=== PATIENT | male | born 1990 | race Caucasian/White ===

== ENCOUNTER 2016-11-25 03:41 | Inpatient (IN) | payer OTHER ==
[~2016-11-25] VITALS: Ht 170.2 cm; Wt 68.3 kg
[~2016-11-25 03:41] MED LIST: ALPRAZOLAM1 MG PO; NEXIUM 40MG40 MG PO; XANAX0.5 MG PO
--- NOTE | 2016-11-25 03:47 | ED PSYCHIATRIC COMPLAINT ---
See Addendum History of Present Illness General Chief Complaint: Psychiatric Related Complaint Stated Complaint: [place] [employer] PAP[employer] +SI Source: patient Exam Limitations: no limitations Vital Signs & Intake/Output Vital Signs & Intake/Output Vital Signs Date Time Temp Pulse Resp B/P B/P Pulse O2 O2 Flow FiO2 Mean Ox Delivery Rate 11/25 0353 Room Air 11/25 0347 97.3 116 18 121/74 97 Room Air Allergies Coded Allergies: NO KNOWN ALLERGIES (03/26/15) Reconcile Medications Alprazolam (Xanax) 0.5 MG TAB 1.5 MG PO DAILY INSOMNIA (Reported) Lamotrigine 100 MG TABLET 1 TAB PO DAILY MOOD (Reported) Triage Nurses Notes Reviewed? yes Onset: Gradual Duration: week(s):, waxing and waning Timing: recent history Severity: moderate Associated Symptoms: anxiety, suicidal ideation HPI: 26-year-old gentleman presents with suicidality. He states that he was in detox for heroin and Xanax in [place]. He says, "I told people that I wanted to kill myself then.... But I don't really want to do that now." He also states that he told an ex-girlfriend, "I will see you until the day I ." This was interpreted as being a suicidal statement. She called 911. The police brought him to the emergency department and papered him for further evaluation. He denies drug use, alcohol, suicidality, homicidality, or hallucinations. He is otherwise well. Past History Medical History Any Pertinent Medical History? see below for history Neurological: DENIES EENT: DENIES Cardiovascular: DENIES Respiratory: DENIES Gastrointestinal: DENIES Hepatic: DENIES Renal: DENIES Musculoskeletal: DENIES Psychiatric: anxiety Endocrine: DENIES Blood Disorders: DENIES Cancer(s): DENIES Surgical History Surgical History: non-contributory Psychosocial History What is your primary language Urdu Family History Hx Contributory? No Review of Systems Review of Systems Constitutional: Reports: no symptoms. EENTM: Reports: no symptoms. Respiratory: Reports: no symptoms. Cardiovascular: Reports: no symptoms. GI: Reports: no symptoms. Genitourinary: Reports: no symptoms. Musculoskeletal: Reports: no symptoms. Skin: Reports: no symptoms. Neurological/Psychological: Reports: no symptoms. Hematologic/Endocrine: Reports: no symptoms. Immunologic/Allergic: Reports: no symptoms. All Other Systems: Reviewed and Negative Physical Exam Physical Exam General Appearance: well developed/nourished, mild distress Head: atraumatic Eyes: Bilateral: PERRL, EOMI. Ears, Nose, Throat: normal pharynx, normal ENT inspection, hearing grossly normal Neck: normal inspection, supple Respiratory: normal breath sounds Cardiovascular: regular rate/rhythm Gastrointestinal: soft, non-tender Extremities: normal range of motion Neurological/Psychiatric: awake, anxious, flat, oriented x 3 Appearance/Memory/Insight: appropriate insight Behavoir/Eye Contact/Speech: cooperative, normal speech, good eye contact Thoughts/Hallucinations: no apparent hallucination Skin: intact, normal color, warm/dry SAD PERSONS SAD PERSONS Response Value Male Sex? yes 1 Depression/Hopelessness? yes 2 Excessive Ethanol/Drug Use? yes 1 Social Support? has no support 1 Total 5 SAD PERSONS Done? yes Progress Differential Diagnosis: DEPRESSION VERSUS SUICIDALITY VERSUS DRUG ABUSE Plan of Care: Orders Procedure Date/time Status Regular Diet 11/25 B Active Continuous Observation Monitor 11/26 347 Active URINE DRUG SCREEN FOR ER ONLY 11/26 347 Complete ETHANOL 11/26 347 Complete COMPREHENSIVE METABOLIC PANEL 11/26 347 Complete CBC WITHOUT DIFFERENTIAL 11/26 347 Complete ED CRISIS PSYCH CONSULT 11/26 347 Active Laboratory Tests 11/25/16 0403: Anion Gap 11, Estimated GFR > 60, BUN/Creatinine Ratio 13.3, Glucose 133 H, Calcium 8.6, Total Bilirubin 0.5, AST 19, ALT 40, Alkaline Phosphatase 80, Total Protein 6.0 L, Albumin 3.4 L, Globulin 2.6, Albumin/Globulin Ratio 1.3, CBC w Diff NO MAN DIFF REQ, RBC 4.35 L, MCV 86.9, MCH 29.9, RDW 13.9, MPV 7.1 L, Gran % 64.5, Lymphocytes % 21.5, Monocytes % 8.0, Eosinophils % 5.7 H, Basophils % 0.3, Absolute Granulocytes 9.9 H, Absolute Lymphocytes 3.3, Absolute Monocytes 1.2 H, Absolute Eosinophils 0.9, Absolute Basophils 0.1, PUBS MCHC 34.4, Serum Alcohol < 10.0 11/25/16 0355: Urine Opiates Screen > 4000.00 H, Methadone Screen > 735 H, Barbiturate Screen < 60, Ur Phencyclidine Scrn < 6.00, Amphetamines Screen 208, U Benzodiazepines Scrn > 800 H, Urine Cocaine Screen < 50, Urine Cannabis Screen < 5.00 Hand-Off Endorsed To: RUPAL BURGOS,ROZINA Estevez Endorsed Time: 0700 Pending: consult, labs Departure Departure Disposition: HOME OR SELF CARE Condition: Stable Clinical Impression Primary Impression: Adjustment disorder Secondary Impressions: Narcotic abuse Referrals: MABLE CAGLE (PCP/Family) Departure Forms: Customer Survey General Discharge Information
--- NOTE | 2016-11-25 03:54 | NUR ---
PT BIBA ON A PEER FROM [place] [employer] THAT WAS FAXED TO [facility]. PER PEER, PT WROTE IN AN EMAIL TO EX-GIRLFRIEND "THE NEXT TIME YOU HEAR FROM ME WILL BE THE DAY THAT I ." PT ARRIVES CALM AND COOPERATIVE, STATES HE SENT THE EMAIL IN THE CONTEXT THAT HE WAS NEVER GOING TO TALK TO HER AGAIN. PT DENIES SI/HI. DENIES ALCOHOL OR DRUG USE. PT REPORTS HE WAS IN [place] UNTIL OCTOBER IN A REHAB FACILITY FOR DETOX FROM IV HEROIN. PT WANDED BY SECURITY. MD YANEZ AT BEDSIDE
--- NOTE | 2016-11-25 04:04 | NUR ---
LABS SENT (1SST,1LAV)
[2016-11-25] MEDS ORDERED: LAMOTRIGINE100 M2 PO (04:06)
[2016-11-25 04:12] LABS: ABSOLUTE BASOPHIL COUNT 0.1 /CUMM (0.0-0.2); ABSOLUTE EOSINOPHIL COUNT 0.9 /CUMM (0.0-0.7); ABSOLUTE GRANULOCYTE CT 9.9 /CUMM (1.4-6.5); ABSOLUTE LYMPH COUNT 3.3 /CUMM (1.2-3.4); ABSOLUTE MONOCYTE COUNT 1.2 /CUMM (0.10-0.60); BASOPHIL % 0.3 % (0.0-2.0); EOSINOPHIL % 5.7 % (0-5); GRANULOCYTE % 64.5 % (42.2-75.2); HEMATOCRIT 37.8 % (42-52); MEAN CORPUSCULAR HGB 29.9 PG (27.0-31.0); MEAN CORPUSCULAR HGB CONC 34.4 G/DL (33.0-37.0); MEAN CORPUSCULAR VOLUME 86.9 FL (80.0-94.0); MEAN PLATELET VOLUME 7.1 FL (7.4-10.4); PLATELET COUNT 411 /CUMM (130-400); RBC DISTRIBUTION WIDTH 13.9 % (11.5-14.5); RED BLOOD CELL CT 4.35 /CUMM (4.70-6.10); WHITE BLOOD CELL COUNT 15.4 /CUMM (4.8-10.8)
--- NOTE | 2016-11-25 06:28 | NUR ---
PT AWAKE, ALERT AND ORIENTED. CALM AND COOPERATIVE. DENIES NEEDS AT THIS TIME.
--- NOTE | 2016-11-25 07:32 | NUR ---
PT SLEEPING, RESPIRATIONS EVEN AND UNLABORED.
--- NOTE | 2016-11-25 08:37 | ED PSYCH CRISIS CONSULTATION ---
See Addendum Crisis Consult Basic Assessment Date of Consult: 11/25/16 Responsible Person/Accompanied By: self Insurance Authorization: Insurance #1: Insurance name: OUT OF STATE [employer] Phone number: Policy number: [id number] Group number: [id number] Authorization number: ED Provider: Patient's ED Provider: RENATA BURGOS,RIKY Mccarthy Primary Care Physician: Patient's PCP: MABLE CAGLE PCP's Current Psychiatrist: Pee Jain APRN Chief Complaint: Psychiatric Related Complaint Patient's Quote: "I'm not suicidal, I just said it because we were arguing." Present Illness: Pt is a 26yo male who was brought to the ED on a PEER following an argument with his ex-girlfriend. Per the PEER, Pt sent his ex-girlfriend an email stating "The next time you hear from me will be the day that I " He also told her that he left inpt Rehab in [place] early so he could go kill himself. He left in october against medical advise. Upon crisis eval pt was calm co-operative and engaging. Pt admits that he did leave substance abuse rehab early because he felt he got everything out of it and did not think he needed to stay anymore. He admits that when he left the rehab that he was planning to kill himself by overdosing, but did not because he did not want to hurt his Mom. Pt denies active SI and stated he expressed those things to his ex-girlfriend out of anger. He explains that when he said "the next time you hear from me will be the day that I " was his way of expressing that he was no longer going to speak to her. Pt admits that he did make a suicide attempt by OD 3 years ago and was psychiatrically hospitalized at [facility] and was diagnosed with Bipolar II. Pt denies any of the hx of attempts on inpt psych admits. Pt reports that he was in out pt tx with Dr. Stephan aYnez of [place] for 4 years and 6 months ago changed to Harpal Munoz APRN of [facility] and is prescribed Lamictal 200mg and xanax 2mg. Pt denies abusing his xanax. Pt is also in out pt therapy with Jose Cheng LCSW, . Pt admits that he has not seen either once since his return from Rehab. Pt denies any hx of out pt substance abuse tx, but did have his first inpt substance abuse tx in October [facility] in [place]. Pt identified that he has struggled with heroin addiction for 3 years and was using up to 15 bags daily snorting and injecting. Pt reports that after he left rehab he immediately relapsed, but says he uses less about 5 bags 1 time a week. Pt admits that he also took methadone off the streets 3 days ago trying to detox himself. Pt denies any current sx of depression and says he sleep and appetite are good. Pt expresses his eagerness to discharge so that eh can return to work. 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 This clinician spoke to Pt's Mother Alice Garcia with whom pt lives who explained that the last time pt tried to kill himself it was over an ex-girlfriend and she is concerned for him and thinks that he needs to be hospitalized. Crisis spoke to pt's therapist Kuldeep Cheng LCSW who explained that he has not seen pt for quite some time, but is always willing to be a support. He reports that pt quite frequently makes suicidal statement inj relation to issues with girlfriends. He does understand the concerns and supports inpt psych tx for pt. He oofered to come in and be collaborate [id number] pt's tx. This clinician also spoke with Pt's Prescriber Harpal Jain APRN who explains that he has only seen pt 2xs and does not know him well, but given the circumstances of the situation he recommends inpt psych Hospitalization. He informed that he is going to be leaving [facility], and will be working at [facility] in [facility], but is willing to continue to work with pt ion his new practice. Case reviewed with Dr. Liriano of Psychiatry and pt needs inpt psych tx. Pt is refusing so he is being placed on PEC. Pt was instructed that that he may file for a probable cause hearing as he does not want inpt tx. Patient's Address: [address] [place] [address] Other Phone Number: Who Do You Live With? Mother Family/Informants Interviewed: Mom and Out pt providers Allergies - Coded Allergies: NO KNOWN ALLERGIES (03/26/15) Current Medications - Scheduled Medications Alprazolam (Xanax) 0.5 MG TAB 1.5 MG PO DAILY INSOMNIA (Reported) Entered as Reported by ANGELLA PELAYO on 03/26/15912 Last Taken: 11/24/16 Lamotrigine 100 MG TABLET 1 TAB PO DAILY MOOD #30 (Reported) Entered as Reported by MISTY SHEPHERD on 11/25/16 0406 Laboratory Results: Laboratory Tests 11/25/16 0826: Sodium Cancelled, Potassium Cancelled, Chloride Cancelled, Carbon Dioxide Cancelled, Anion Gap Cancelled, BUN Cancelled, Creatinine Cancelled, BUN/ Creatinine Ratio Cancelled, Glucose Cancelled, Calcium Cancelled 11/25/16 0403: Anion Gap 11, Estimated GFR > 60, BUN/Creatinine Ratio 13.3, Glucose 133 H, Calcium 8.6, Total Bilirubin 0.5, AST 19, ALT 40, Alkaline Phosphatase 80, Total Protein 6.0 L, Albumin 3.4 L, Globulin 2.6, Albumin/Globulin Ratio 1.3, CBC w Diff NO MAN DIFF REQ, RBC 4.35 L, MCV 86.9, MCH 29.9, RDW 13.9, MPV 7.1 L, Gran % 64.5, Lymphocytes % 21.5, Monocytes % 8.0, Eosinophils % 5.7 H, Basophils % 0.3, Absolute Granulocytes 9.9 H, Absolute Lymphocytes 3.3, Absolute Monocytes 1.2 H, Absolute Eosinophils 0.9, Absolute Basophils 0.1, PUBS MCHC 34.4, Serum Alcohol < 10.0 11/25/16 0355: Urine Opiates Screen > 4000.00 H, Methadone Screen > 735 H, Barbiturate Screen < 60, Ur Phencyclidine Scrn < 6.00, Amphetamines Screen 208, U Benzodiazepines Scrn > 800 H, Urine Cocaine Screen < 50, Urine Cannabis Screen < 5.00 Past History Past Medical History Neurological: DENIES EENT: DENIES Cardiovascular: DENIES Respiratory: DENIES Gastrointestinal: DENIES Hepatic: DENIES Renal: DENIES Musculoskeletal: DENIES Psychiatric: anxiety Endocrine: DENIES Blood Disorders: DENIES Cancer(s): DENIES Past Surgical History Surgical History: non-contributory Psychosocial History Strengths/Capabilities: engaging, employed, has out pt providers Physical Limitations (Interventions): none reported Psychiatric Treatment History Psych Treatment Psychiatric Treatment Yes Inpatient Treatment Yes Outpatient Treatment Yes Location of Treatment [facility] ionpt and out pt in [place] Reason for Treatment BipolaR II Dates of Treatment inpt 3 years ago out pt current Response to Treatment variable Diagnosis by History: Bipolar II, Opiate Use d/o Substance Use/Abuse History Drug Use/Abuse Substances Used/Abused Yes Substance Used/Abused Heroin First Use 3 years ago Last Used 3 days ago How much used/taken 5 bags How often 1x weekly For how long 3 years Route of use IV and snort Substance Abuse Treatment Substance Abuse Treatment Past Substance Abuse TX Yes Inpatient Treatment Yes Outpatient Treatment No Location of Treatment [facility] Reason for Treatment opiate use Dates of Treatment October 2016 Response to Treatment poor Current Mental Status Mental Status Orientation: Person, Place, Situation Affect: Anxious, Angry, Depressed, Sad, Variable Speech: WNL Neuro-vegetative: pt denies any sx Appearance Appearance- Dress/Hygiene: fairly groomed, fair eye contact. Pt took off his shirt and is covered by the blanklets Behaviors Thought Process: WNL Thought Content: WNL Memory: WNL Insight: Poor SI/HI Risk Assessment Past Suicidal Ideation/Attempts Yes Current Suicidal Ideation/Att No Past Homicidal Ideation/Att: No Current Homicidal Ideation/Attempts No Degree of Intent: None Danger To: Self Gravely Disabled: Lack of Insight, Poor Impulse Control, Poor Judgment Risk Factors: history of suicide atmpts, SA/MH hospitalized, substance abuse, poor impulse control, male Lethality Ratin PTSD Checklist PTSD Done? patient declined ED Management Sitter: Yes Restraints: No DSM5/PS Stressors/Medical Prob Diagnosis' (DSM 5, Stressors, Medical): BIpolar II F31.81, Opiate Use D/OF11.20 Current GAF: 25 Departure Disposition Psych Medical Clearance Date: 11/25/16 Medically Cleared at: 0800 Time Started: 0800 Time Ended: 0900 Psychiatrist Consulted: Riky Liriano MD Date Disposition Established: 11/25/16 Time Disposition Established: 09 Plan for Disposition - Modality: Inpatient Psychiatry Facility: [facility] Rationale for Disposition: safety and stabilization Type of IP Admission: PEC Referrals ELIZABETH ISAAC,MABLE LANDEROS (PCP/Family)
--- NOTE | 2016-11-25 10:53 | ED PSYCHIATRIST/APRN CONSULT ---
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 Patient seen at 10:24 AM. The patient is a 26-year-old single white male with history of bipolar 2 disorder and opioid use disorder. He presented to the emergency room on a [place] police emergency examination request. He apparently sent an email to his ex-girlfriend, expressing suicidal ideation. She called 911. Patient apparently left a rehab in [place] in October. He was there for treatment of heroin and benzodiazepine addiction. 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 Patient disagrees with plan for hospitalization at this time. Denies suicidal ideation. 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 He states "I'm okay. I'm just upset you made the decision to commit me." States he has lost a lot, his girlfriend and friends. Patient was seen at [facility] emergency room on 03/26/15 after an accidental overdose with snorted heroin. Patient was seen at [facility] emergency room on 12/25/15 after ingesting electronic duster to get high. Past psychiatric history: Patient has seen Harpal Jain APRN twice. Patient was hospitalized about 2-3 years ago at [facility] after an overdose with Xanax and sleeping pills. Patient reports this was his only suicide attempt. Substance use history: Tobacco at 1.5 packs per day. No alcohol. Heroin use at 4-5 bags once a week. Urine drug screen was positive for opiates, methadone and benzodiazepines. Medications: Lamictal 200 mg daily per patient. Xanax 1 mg q.h.s. per patient. Allergies: No known allergies. Past medical history: None. Family psychiatric and substance abuse history: Psychiatric: None. Substance abuse: None. Suicides: None. Social history: Lives with mother. Father from cardiomyopathy when the patient was 18 years old. Patient has a 29-year-old sister. Patient attended some college. No history of arrests. Mental status examination: The patient is a white male, bearded, shirtless, noted to have tattoos on both arms. He is covered with a blanket. He is calm, polite and cooperative. There is no psychomotor agitation or retardation. Speech is normal in volume, rate and tone. Affect is calm and blunted. Patient is argumentative about plan for hospitalization. States that email to ex-girlfriend was about getting back his boots that he last saw in her basement. Claims he was indicating to her that he would not bother her again. Rates sad mood /10 because of the stressor of being hospitalized. Rates anxiety probably 12/25. Denies feeling hopeless, helpless, worthless or guilty. Denies suicidal and homicidal ideation. Denies auditory and visual hallucinations and paranoid ideation. Insight and judgment are poor. There is no apparent thought disorder or delusions. Patient is oriented 3. Cognition is grossly intact. Estimate of intellectual functioning is average. Reports sleep and appetite are good. Energy is pretty good. IMPRESSION: Bipolar 2 disorder. Opioid use disorder. I recommend hospitalization on a PEC due to danger to self. Patient was advised that he has the legal right to a probable cause hearing. Patient feels he will likely need a detox from opiates.
--- NOTE | 2016-11-25 11:20 | NUR ---
PER MST, PT IS REQUESTING NICOTINE PATCH. PT REPORTS SMOKING 2 PACKS PER DAY. WILL MAKE DR GOLDSMITH AWARE.
--- NOTE | 2016-11-25 11:24 | NUR ---
PT ASLEEP AT THIS TIME ON HIS RIGHT SIDE, FACING WALL. RESPIRATIONS EQUAL AND UNLABORED. SITTER AT DOOR.
--- NOTE | 2016-11-25 12:30 | NUR ---
NICOTINE PATCH 14MG APPLIED TO PT'S LUE. PT CALM AND COOPERATIVE. SITTER AT DOOR.
--- NOTE | 2016-11-25 14:22 | NUR ---
PT ASLEEP AT THIS TIME. RESPIRATIONS EQUAL AND UNLABORED. SITTER AT DOOR.
--- NOTE | 2016-11-25 15:57 | IP CRISIS DIAG ASSESS PSYCH ---
See Addendum Diagnostic Assessment Basic Assessment Insurance Authorization: Insurance #1: Insurance name: OUT OF STATE [place] Phone number: Policy number: [id number] Group number: [id number] Authorization number: Primary Care Physician: Patient's PCP: MABLE CAGLE PCP's Patient's Quote: "I'm not suicidal, I just said it because we were arguing." Present Illness: Pt is a 26yo male who was brought to the ED on a PEER following an argument with his ex-girlfriend. Per the PEER, Pt sent his ex-girlfriend an email stating "The next time you hear from me will be the day that I " He also told her that he left inpt Rehab in [place] early so he could go kill himself. He left in october against medical advise. Upon crisis eval pt was calm co-operative and engaging. Pt admits that he did leave substance abuse rehab early because he felt he got everything out of it and did not think he needed to stay anymore. He admits that when he left the rehab that he was planning to kill himself by overdosing, but did not because he did not want to hurt his Mom. Pt denies active SI and stated he expressed those things to his ex-girlfriend out of anger. He explains that when he said "the next time you hear from me will be the day that I " was his way of expressing that he was no longer going to speak to her. Pt admits that he did make a suicide attempt by OD 3 years ago and was psychiatrically hospitalized at [facility] and was diagnosed with Bipolar II. Pt denies any of the hx of attempts on inpt psych admits. Pt reports that he was in out pt tx with Dr. Stephan Yanez of [place] for 4 years and 6 months ago changed to Harpal Munoz APRN of [facility] and is prescribed Lamictal 200mg and xanax 2mg. Pt denies abusing his xanax. Pt is also in out pt therapy with Jose Cheng [facility], . Pt admits that he has not seen either once since his return from Rehab. Pt denies any hx of out pt substance abuse tx, but did have his first inpt substance abuse tx in October [facility] in [place]. Pt identified that he has struggled with heroin addiction for 3 years and was using up to 15 bags daily snorting and injecting. Pt reports that after he left rehab he immediately relapsed, but says he uses less about 5 bags 1 time a week. Pt admits that he also took methadone off the streets 3 days ago trying to detox himself. Pt denies any current sx of depression and says he sleep and appetite are good. Pt expresses his eagerness to discharge so that eh can return to work. He works in a [employer] for [employer]. This clinician spoke to Pt's Mother Alice Garcia with whom pt lives who explained that the last time pt tried to kill himself it was over an ex-girlfriend and she is concerned for him and thinks that he needs to be hospitalized. Crisis spoke to pt's therapist Kuldeep Cheng LCSW who explained that he has not seen pt for quite some time, but is always willing to be a support. He reports that pt quite frequently makes suicidal statement inj relation to issues with girlfriends. He does understand the concerns and supports inpt psych tx for pt. He oofered to come in and be collaborate [id number] pt's tx. This clinician also spoke with Pt's Prescriber Harpal Jain APRN who explains that he has only seen pt 2xs and does not know him well, but given the circumstances of the situation he recommends inpt psych Hospitalization. He informed that he is going to be leaving [facility], and will be working at [facility] in [facility], but is willing to continue to work with pt ion his new practice. Case reviewed with Dr. Liriano of Psychiatry and pt needs inpt psych tx. Pt is refusing so he is being placed on PEC. Pt was instructed that that he may file for a probable cause hearing as he does not want inpt tx. Patient's Address: [address] [place] [address] Other Phone Number: Who Do You Live With? Mother Feel Safe Where You Live? Yes Feel Safe in Your Relationship Yes Marital Status: single Do You Have Children? No Primary Language? Citizen Of [place] Language(s) Spoken At Home: Citizen Of [place] Family/Informants Interviewed: Mom and Out pt providers Allergies - Coded Allergies: NO KNOWN ALLERGIES (03/26/15) Current Medications - Scheduled Medications Alprazolam (Xanax) 0.5 MG TAB 1.5 MG PO DAILY INSOMNIA (Reported) Entered as Reported by ANGELLA PELAYO on 03/26/15912 Last Taken: 11/24/16 Lamotrigine 100 MG TABLET 1 TAB PO DAILY MOOD #30 (Reported) Entered as Reported by MSITY SHEPHERD on 11/25/16 0406 Lab Results: Laboratory Tests 11/25/16 08: Sodium Cancelled, Potassium Cancelled, Chloride Cancelled, Carbon Dioxide Cancelled, Anion Gap Cancelled, BUN Cancelled, Creatinine Cancelled, BUN/ Creatinine Ratio Cancelled, Glucose Cancelled, Calcium Cancelled 11/25/16 0403: Anion Gap 11, Estimated GFR > 60, BUN/Creatinine Ratio 13.3, Glucose 133 H, Calcium 8.6, Total Bilirubin 0.5, AST 19, ALT 40, Alkaline Phosphatase 80, Total Protein 6.0 L, Albumin 3.4 L, Globulin 2.6, Albumin/Globulin Ratio 1.3, TSH 1.440, CBC w Diff NO MAN DIFF REQ, RBC 4.35 L, MCV 86.9, MCH 29.9, RDW 13.9, MPV 7.1 L, Gran % 64.5, Lymphocytes % 21.5, Monocytes % 8.0, Eosinophils % 5.7 H, Basophils % 0.3, Absolute Granulocytes 9.9 H, Absolute Lymphocytes 3.3, Absolute Monocytes 1.2 H, Absolute Eosinophils 0.9, Absolute Basophils 0.1, PUBS MCHC 34.4, Serum Alcohol < 10.0 11/25/16 0355: Urine Opiates Screen > 4000.00 H, Methadone Screen > 735 H, Barbiturate Screen < 60, Ur Phencyclidine Scrn < 6.00, Amphetamines Screen 208, U Benzodiazepines Scrn > 800 H, Urine Cocaine Screen < 50, Urine Cannabis Screen < 5.00 Toxicology Screen Completed? Yes Results: positive Past History Past Surgical History Surgical History DENIES Abuse/Trauma History Trauma History/Current Trauma: Denies Legal History Current Legal Status: none Have you ever been arrested? No Number of Arrests: 0 Psychosocial History Strengths/Capabilities: engaging, employed, has out pt providers Physical Limitations (Interventions): none reported Psychiatric Treatment History Psych Treatment Psychiatric Treatment Yes Inpatient Treatment Yes Outpatient Treatment Yes Location of Treatment [facility] ionpt and out pt in [place] Reason for Treatment BipolaR II Dates of Treatment inpt 3 years ago out pt current Response to Treatment variable Diagnosis by History: Bipolar II, Opiate Use d/o Risk Factors: history of suicide atmpts, SA/MH hospitalized, substance abuse, poor impulse control, male Substance Use/Abuse History Drug Use/Abuse minimum 12mo Hx Substances Used/Abused Yes Substance Used/Abused Heroin First Use 3 years ago Last Used 3 days ago How much used/taken 5 bags How often 1x weekly For how long 3 years Route of use IV and snort Substance Abuse Treatment Substance Abuse Treatment Past Substance Abuse TX Yes Inpatient Treatment Yes Outpatient Treatment No Location of Treatment [facility] Reason for Treatment opiate use Dates of Treatment October 2016 Response to Treatment poor Sexual History Sexually Active No Sexual Orientation Heterosexual Sexual Concerns: none reported Education History Highest Level of Education: high school/GED Preferred Learning Style: visual, auditory, experiential Current Mental Status Mental Status Orientation: Person, Place, Situation Affect: Anxious, Angry, Depressed, Sad, Variable Speech: WNL Neuro-vegetative: pt denies any sx Appearance Appearance- Dress/Hygiene: fairly groomed, fair eye contact. Pt took off his shirt and is covered by the blanklets Behaviors Thought Process: WNL Thought Content: WNL Memory: WNL Insight: Poor SI/HI Risk Assessment - Minimum 6mo History- Past Suicidal Ideation/Attempts Yes Current Suicidal Ideation/Att No Past Homicidal Ideation/Att: No Current Homicidal Ideation/Attempts No Degree of Intent: None Danger To: Self Gravely Disabled: Lack of Insight, Poor Impulse Control, Poor Judgment Risk Factors: history of suicide atmpts, SA/MH hospitalized, substance abuse, poor impulse control, male Lethality Ratin Needs/Init TX Plan/Goals: Safty and Stabilization of sx, individual, group, and family therapy, med eval, detox AUDIT-C Questionnaire: AUDIT-C Questionnaire: Response Value ETOH use in the past year Never 0 # drinks typical/day Doesn't Drink 0 6 or > drinks per occasion Never 0 Total 0 DSM5/PS Stressors/Medical Prob Diagnosis' (DSM 5, Stressors, Medical): BIpolar II F31.81, Opiate Use D/O F11.20 Current GAF: 25
--- NOTE | 2016-11-25 16:21 | NUR ---
PT MEDICATED WITH LAMICTAL 200MG, MULTIVITAMIN AND K-DUR 40MEQ. PT CALM AND COOPERATIVE. PT REPORTS W/D SYMPTOMS INCLUDING CHILLS, SWEATS AND BODY ACHES. SITTER AT DOOR.
--- NOTE | 2016-11-25 16:44 | NUR ---
PT MEDICATED WITH CLONIDINE 0.1MG SITTER AT DOOR
--- NOTE | 2016-11-25 17:00 | NUR ---
PT MEDICATED WITH TYLENOL 650MG FOR BODY ACHES.
--- NOTE | 2016-11-25 18:25 | NUR ---
PT ASLEEP ON RIGHT SIDE WITH BLANKET OVER HIM. PT'S BLUE SCRUB SHIRT IS ON FLOOR AND PT HAS NO SHIRT ON. PT HAS BEEN CALM AND COOPERATIVE. SITTER AT DOOR.
--- NOTE | 2016-11-25 20:10 | NUR ---
PT RESTING IN DARK ROOM, CALM AND COOPERATIVE. SITTER AT DOOR.
[2016-11-25 22:14] VITALS: BP 111/69
[2016-11-25] MEDS ORDERED: XANAX2 M1 PO (22:46)
--- NOTE | 2016-11-25 23:01 | NUR ---
PT ADMITTED TO CPS ON A PEC AFTER AN APPARENT SUICIDAL STATEMENT "TAKEN OUT OF CONTEXT." PT DENIED SI/THOUGHTS OF SELF HARM. HE ALSO DENIED FEELING DEPRESSED WELL HX OF SUICIDE ATTEMPT BY OD 3 YEARS AGO, WHICH WAS REPORTED ON CRISIS EVAL. PT DIAGNOSED WITH BIPOLAR 2. HE ADMITTED TO HEROIN ADDICTION WHICH PROGRESSED FROM SNORTING FOR THREE YEARS TO CURRENT IV USE. PT REPORTS HE HAS BEEN USING "3 BAGS LIKE ONCE A WEEK". VSS. NO SOMATIC C/O. AT LEFT ARM INJECTION SITE, AREA NOTED TO BE HOT,RED, AND INFLAMED. PT DENIED ALL OTHER SUBSTANCE ABUSE/USE AND SAID HE ONLY TAKES PRESCRIBED DOSE OF XANAX "AT NIGHT TO HELP ME SLEEP."
--- NOTE | 2016-11-25 23:45 | History & Physical ---
General Information and HPI MD Statement: I have seen and personally examined ANTONIO ALDRICH and documented this H&P. The patient is a 26 year old M who presented with a patient stated chief complaint of [suicidal ideation]. Source of Information: patient Exam Limitations: no limitations History of Present Illness: 26 yo M with h/o anxiety, bipolar disorder, heroin abuse, is admitted to Inpatient Psychiatry for suicidal ideation. He was recently at [place] for detox from heroin and xanax, however left AMA. Please refer to Psych note for further details. He reports recent relapse to IV heroin use and he does 4 bags every week. He c/o left forearm swelling for past 2 days, around the injection site. No associated fever/ chills. He has no medical problems and denies chest pain, dyspnea, palpitations or lightheadedness. 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 Home Who Do You Live With? self Services at Home: None Primary Language: Thai Smoking Status: Current Everyday Smoker ETOH Use: denies use Illicit Drug Use: heroin, off the street methadone and benzos Functional Ability ADLs Independent: dressing, eating, toileting, bathing. Ambulation: independent IADLs Independent: food prep, telephone, transportation. 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 EENTM: Reports: no symptoms. Cardiovascular: Denies: chest pain, orthopena, palpitations, syncope. Respiratory: Denies: cough, short of breath, sputum production, wheezing. GI: Denies: abdominal pain, constipation, diarrhea, vomiting. Genitourinary: Reports: no symptoms. Musculoskeletal: Denies: back pain, muscle pain, neck pain. Skin: Reports: erythema. Neurological/Psychological: Reports: see HPI. All Other Systems: Reviewed and Negative Exam & Diagnostic Data Last 24 Hrs of Vital Signs/I&O Vital Signs Date Time Temp Pulse Resp B/P B/P Pulse O2 O2 Flow FiO2 Mean Ox Delivery Rate 11/27 2199 99.9 98 16 129/82 11/27 2008 99.9 98 129/82 11/27 1803 98.9 104 16 128/81 11/27 1606 104 128/81 11/27 1211 97 108/53 11/27 1034 98.9 97 16 100/54 11/27 0825 98.9 97 100/54 Physical Exam General Appearance Alert, Oriented X3, Cooperative, No Acute Distress Skin Left forearm swelling and erythema around the area of injection site with induration. Tenderness+, no fluctuance. HEENT PERRLA, EOMI, Mucous Membr. moist/pink Neck Supple Cardiovascular Regular Rate, Normal S1, Normal S2, No Murmurs Lungs Clear to Auscultation, Normal Air Movement Abdomen Normal Bowel Sounds, Soft, No Tenderness Neurological Exam Findings: Normal Gait, Normal Speech, Strength at 5/5 X4 Ext, Sensation Intact, Cranial Nerves 3-12 NL, Reflexes 2+ Cranial Nerves II through XII: Grossly intact Extremities No Edema, Normal Pulses, No Tenderness/Swelling Last 24 Hrs of Labs/Moe: Laboratory Tests 11/26 11/25 0659 0826 Chemistry Sodium (137 - 145 mmol/L) 142 Cancelled Potassium (3.5 - 5.1 mmol/L) 4.5 Cancelled Chloride (98 - 107 mmol/L) 104 Cancelled Carbon Dioxide (22 - 30 mmol/L) 26 Cancelled Anion Gap (5 - 16) 12 Cancelled BUN (9 - 20 mg/dL) 6 L Cancelled Creatinine (0.7 - 1.2 mg/dL) 0.6 L Cancelled Estimated GFR (>60 ml/min) > 60 BUN/Creatinine Ratio (7 - 25 %) 10.0 Cancelled Glucose Cancelled Calcium Cancelled Diagnostic Data EKG Results -- CXR Results -- Assessment/Plan Assessment: 26 yo M with h/o bipolar disorder, opiate use disorder, is admitted for suicidal ideation. 1. Management as per Psych team. 2. Left forearm cellulitis in the setting of IV drug abuse. Blood cultures, need to rule out abscess with ultrasound in AM, initiate po keflex and bactrim. 3. Smoking cessation counseling, nicotine patch. DVT ppx low risk, early ambulation. As Ranked By This Provider Problem List: 1. Depression 2. Suicidal ideation Miscellaneous Miscellaneous Documentation Attending Case Discussed With: Shazia Gan MD Primary Care Physician: MABLE CAGLE Patient sees these Specialists -- Level of Patient Care: AJ Hernandez Attending Review Statement Attending Statement Attending MD Statement: examined this patient, discuss w/resident/PA/BROILER CHEF OR COOK
--- NOTE | 2016-11-25 23:46 | Admission Certification ---
Admission Certification Certification Statement - As attending physician, I certify that at the time of - admission, based on clinical presentation, severity of - symptoms, need for further diagnostic testing and - therapeutic interventions, and risk of adverse outcomes - without in-hospital treatment, in my clinical assessment, - this patient requires an acute hospital stay for a minimum - of two nights or longer. I have also considered psychsocial - factors such as support system, advanced age, financial - issues, cognitive issues, and failed out-patient treatments, - past re-admission history, safety of patient, and lack of - compliance as applicable. Specific rationale supporting this admission is: Depression, suicidal ideation.
--- NOTE | 2016-11-26 07:33 | NUR ---
PT ADMITTED ON A PEC FOR SUICIDAL IDEATION. PT BIPOLAR II, OPIATE USE DISORDER. PT STARTED ON ANTIBIOTICS AND BLOOD CULTURES DONE FOR POSSIBLE INFECTION OF IV DRUG USE SITE ON ARM.
[2016-11-26 08:42] VITALS: BP 123/67
--- NOTE | 2016-11-26 11:42 | SOCIAL WORKER SOCIAL HX PSYCH ---
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 Per the PEER, Pt sent his ex-girlfriend an email stating "The next time you hear from me will be the day that I " He also told her that he left inpt Rehab in [place] early so he could go kill himself. He left in october against medical advise. Upon crisis eval pt was calm co-operative and engaging. Pt admits that he did leave substance abuse rehab early because he felt he got everything out of it and did not think he needed to stay anymore. He admits that when he left the rehab that he was planning to kill himself by overdosing, but did not because he did not want to hurt his Mom. Pt denies active SI and stated he expressed those things to his ex-girlfriend out of anger. He explains that when he said "the next time you hear from me will be the day that I " was his way of expressing that he was no longer going to speak to her. Pt admits that he did make a suicide attempt by OD 3 years ago and was psychiatrically hospitalized at [facility] and was diagnosed with Bipolar II. Pt denies any of the hx of attempts on inpt psych admits. Pt reports that he was in out pt tx with Dr. Stephan Yanez of [place] for 4 years and 6 months ago changed to Harpal Munoz APRN of [facility] and is prescribed Lamictal 200mg and xanax 2mg. Pt denies abusing his xanax. Pt is also in out pt therapy with Jose Cheng [facility], . Pt admits that he has not seen either once since his return from Rehab. Pt denies any hx of out pt substance abuse tx, but did have his first inpt substance abuse tx in October [facility] in [place]. Pt identified that he has struggled with heroin addiction for 3 years and was using up to 15 bags daily snorting and injecting. Pt reports that after he left rehab he immediately relapsed, but says he uses less about 5 bags 1 time a week. Pt admits that he also took methadone off the streets 3 days ago trying to detox himself. Pt denies any current sx of depression and says he sleep and appetite are good. Pt expresses his eagerness to discharge so that eh can return to work. 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 This clinician spoke to Pt's Mother Alice Garcia with whom pt lives who explained that the last time pt tried to kill himself it was over an ex-girlfriend and she is concerned for him and thinks that he needs to be hospitalized. Crisis spoke to pt's therapist Kuldeep Cheng LCSW who explained that he has not seen pt for quite some time, but is always willing to be a support. He reports that pt quite frequently makes suicidal statement inj relation to issues with girlfriends. He does understand the concerns and supports inpt psych tx for pt. He oofered to come in and be collaborate [id number] pt's tx. This clinician also spoke with Pt's Prescriber Harpal Jain APRN who explains that he has only seen pt 2xs and does not know him well, but given the circumstances of the situation he recommends inpt psych Hospitalization. He informed that he is going to be leaving [facility], and will be working at [facility] in [facility], but is willing to continue to work with pt ion his new practice. Case reviewed with Dr. Liriano of Psychiatry and pt needs inpt psych tx. Pt is refusing so he is being placed on PEC. Pt was instructed that that he may file for a probable cause hearing as he does not want inpt tx.>>>>>>>>>>>>>>>>>> >>>>>>>>>Radha Bai LCSW Primary Language? Surinamese Language(s) Spoken At Home: Surinamese Living Situation Other Living Arrangement: relative's/guardian's farhad Feel Safe Where You Are Living Yes Comments: Pt reports he is not in a current relationship. Allergies - Coded Allergies: NO KNOWN ALLERGIES (03/26/15) Current Medications - Scheduled Medications Alprazolam (Xanax) 2 MG TABLET 1 TAB PO AT BEDTIME SLEEP HELP (Reported) Entered as Reported by SAM SOLER on 11/25/16 2246 Lamotrigine 100 MG TABLET 1 TAB PO DAILY MOOD #30 (Reported) Entered as Reported by MISTY SHEPHERD on 11/25/16 0406 Last Taken: 200 MG on 11/25/16 1600 Past History Past Medical History Neurological: DENIES EENT: DENIES Cardiovascular: DENIES Respiratory: DENIES Gastrointestinal: DENIES Hepatic: DENIES Renal: DENIES Musculoskeletal: DENIES Psychiatric: anxiety, bipolar disease, IV drug abuse, opioid dependence Endocrine: DENIES Blood Disorders: DENIES Cancer(s): DENIES 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 DCF Involvement? No Mother's Age (Current/): 55 Relationship w/Mother: Pt stated his mother was his primary menagerie caretaker and they have a good relationship. He lives at home with her. Father's Age (Current/): 40 Relationship w/Father: Pt's father is . He said his dad when he was 18 yo due to heart problem. Any Sibling(s)? Yes Sibling's Gender(s)/Age(s): female Sibling 1: (29) Relationship w/Sibling(s): Pt said he is not close with his sister because they do not get along. Relationship w/Friends: Pt notes having friends and playing video games Abuse/Trauma History Trauma History/Current Trauma: Denies Legal History Legal Guardian/Address/Phone: NA Current Legal Status: none Pending Court Dates: denies Have you ever been arrested No Number of Arrests: 0 Hx of Juvenile Legal Charges? No Hx of Adult Legal Charges? 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 No History of Blackouts? No ADL Limitations: Denies ADL limitations Napanoch/Social/Peer Relations Yes, pt reports having peer relations. It is unclear if they are positive support or use with him. Meaningful Activities: none stated Childhood Voodoo: no denominational stated Current Mosque Affiliation: no denominational stated Is Spirituality Important to You? No Patient's Ethnicity: English Cultural/Ethnic Issues: NA Are There Developmental Issues? No Milestones Achieved: fine motor, gross motor Psychiatric Treatment History Psych Treatment Inpatient Treatment Yes Outpatient Treatment Yes Location of Treatment [facility] ionpt and out pt in [place] Reason for Treatment BipolaR II Dates of Treatment inpt 3 years ago out pt current Response to Treatment variable Diagnosis: Bipolar II, Opiate Use d/o Psychodynamic Issues: none stated Risk Factors: history of suicide atmpts, SA/MH hospitalized, substance abuse, poor impulse control, male Substance Use/Abuse History Drug Use/Abuse Substance Used/Abused Heroin First Use 3 years ago Last Used 3 days ago How much used/taken 5 bags How often 1x weekly For how long 3 years Route of use IV and snort Have Had Periods of Sobriety? Yes Explain: Pt said last year he had 5 mos sober. Relapse History? Yes Explain: Pt relapsed on heroin Have You Ever Attended AA? No Do You Attend AA Currently? No Do You Have a Sponsor? No Other Community Resources Used: none stated Substance Abuse Treatment Substance Abuse Treatment Inpatient Treatment Yes Outpatient Treatment No Location of Treatment [facility] Reason for Treatment opiate use Dates of Treatment October 2016 Response to Treatment poor Sexual History Sexually Active No Sexual Orientation Heterosexual Sexual Concerns: none reported Education History Highest Level of Education: high school/GED Highest Grade Completed: associates degree Vocational Year Completed: none stated Number of College Years: 1 College Degree/Major: general liberal arts Preferred Learning Style: visual, auditory, experiential HX of Learning Difficulties: None reported Barriers to Learning: None reported Special Communication Needs: None reported Employment History Employment Pt is currently employed Vocation/Occupational Hx: Prior to pt's current job he said he worked at [employer] for 1 No. of Jobs in Last 5 Years: 2 Attendance: Normal Performance: Average History Have You Been in The ? No Current Mental Status Mental Status Orientation: Person, Place, Situation Affect: Anxious, Angry, Depressed, Sad, Variable Speech: WNL Neuro-vegetative: pt denies any sx Appearance Appearance- Dress/Hygiene: fairly groomed, fair eye contact. Pt took off his shirt and is covered by the blanklets Behaviors Thought Process: WNL Thought Content: WNL Memory: WNL Insight: Poor SI/HI Risk Assessment Past Suicidal Ideation/Attempts Yes Current Suicidal Ideation/Att No Past Homicidal Ideation/Att: No Current Homicidal Ideation/Attempts No Degree of Intent: None Danger To: Self Gravely Disabled: Lack of Insight, Poor Impulse Control, Poor Judgment Risk Factors: High Anxiety/Distress, SA/MH Hospitalization(s), Male, Poor impulse control, Substance Abuse Lethality Ratin - Conclusion and Recommendations for treatment - and discharge planning Summary: Pt is a 26yo male who was brought to the ED on a PEER following an argument with his ex-girlfriend. Per the PEER, Pt sent his ex-girlfriend an email stating "The next time you hear from me will be the day that I " He also told her that he left inpt Rehab in [place] early so he could go kill himself. He left in october against medical advise. Upon crisis eval pt was calm co-operative and engaging. Pt admits that he did leave substance abuse rehab early because he felt he got everything out of it and did not think he needed to stay anymore. He admits that when he left the rehab that he was planning to kill himself by overdosing, but did not because he did not want to hurt his Mom. Pt denies active SI and stated he expressed those things to his ex-girlfriend out of anger. He explains that when he said "the next time you hear from me will be the day that I " was his way of expressing that he was no longer going to speak to her. Pt admits that he did make a suicide attempt by OD 3 years ago and was psychiatrically hospitalized at [facility] and was diagnosed with Bipolar II. Pt denies any of the hx of attempts on inpt psych admits. Pt reports that he was in out pt tx with Dr. Stephan Yanez of [place] for 4 years and 6 months ago changed to Harpal Munoz APRN of [facility] and is prescribed Lamictal 200mg and xanax 2mg. Pt denies abusing his xanax. Pt is also in out pt therapy with Jose Cheng LCSW, . Pt admits that he has not seen either once since his return from Rehab. Pt denies any hx of out pt substance abuse tx, but did have his first inpt substance abuse tx in October [facility] in [place]. Pt identified that he has struggled with heroin addiction for 3 years and was using up to 15 bags daily snorting and injecting. Pt reports that after he left rehab he immediately relapsed, but says he uses less about 5 bags 1 time a week. Pt admits that he also took methadone off the streets 3 days ago trying to detox himself. Pt denies any current sx of depression and says he sleep and appetite are good. Pt expresses his eagerness to discharge so that eh can return to work. 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 This clinician spoke to Pt's Mother Alice Garcia with whom pt lives who explained that the last time pt tried to kill himself it was over an ex-girlfriend and she is concerned for him and thinks that he needs to be hospitalized. Crisis spoke to pt's therapist Kuldeep Cheng LCSW who explained that he has not seen pt for quite some time, but is always willing to be a support. He reports that pt quite frequently makes suicidal statement inj relation to issues with girlfriends. He does understand the concerns and supports inpt psych tx for pt. He oofered to come in and be collaborate [id number] pt's tx. This clinician also spoke with Pt's Prescriber Harpal Jain APRN who explains that he has only seen pt 2xs and does not know him well, but given the circumstances of the situation he recommends inpt psych Hospitalization. He informed that he is going to be leaving [facility], and will be working at [facility] in [facility], but is willing to continue to work with pt ion his new practice. Case reviewed with Dr. Liriano of Psychiatry and pt needs inpt psych tx. Pt is refusing so he is being placed on PEC. Pt was instructed that that he may file for a probable cause hearing as he does not want inpt tx.>>>>>>>>>>>>>>>>>> >>>>>>>>>Radha Bai LCSW
--- NOTE | 2016-11-26 12:03 | NUR ---
PT ISOLATED IN HIS ROOM MOST FOF THIS SHIFT. HE DID NOT ATTEND GROUPS. PT HAD ULTRASOUND OF L ARM TODAY. AWAITING RESULTS. PT DENIED ANY THOUGHTS OF SUICIDE OR SELF HARM AT THIS TIME
[2016-11-26 12:37] VITALS: BP 118/61
--- NOTE | 2016-11-26 13:08 | CPS MD/APRN INITIAL ASSE PSYCH ---
Psychiatric Admission Battery Starter's Note Reviewed: Yes Patient Seen and Examined: Yes Identifying Information: Patient is a 26y/o male with a history of Bipolar II disorder and opiate use disorder; he was biba on a PEER to [facility] ED on 11/25/16 after allegedly having sent an email/text to his ex-girlfriend expressing suicidal ideation. His ex-girlfriend called 911, triggering the patient being sent to the ED. Chief Complaint: "It was all a misunderstanding." Reaction to Hospitalization: Indifferent History of Present Illness Onset of Illness: Early Circumstances Leading to Admission: Opioid abuse Interpersonal conflict Problem(s) Justifying Need for Admission: + SI Other HPI: Patient reported he had sent an email/text out of anger to his ex-girlfriend stating "The next time you hear from me will be the day that I ." He expressed that he meant he never wanted to speak/see her again. Stated this was not a suicidal threat. He denied suicidal ideation, plans, intent. He was future oriented to return to his job which he is afraid to lose. Per ED collateral from patient's mother, Alice Garcia, the patient's last suicide attempt occured over an ex-girlfriend. Past Psychiatric History Past Diagnosis(es)- if any: Bipolar II disorder Opioid use disorder Past Precipitating Factors- if any: Unknown - Include inpatient and outpatient treatment Treatment History: [facility] Inpatient Psychiatry (2-3 years ago) after overdosing on Xanax and sleeping pills. Prior outpatient tx at [facility], last 6 months ago. Recent outpatient tx with Harpal Jain APRN, 2-3 x. [facility] in [place], October 2016; patient reported he left early. 2 prior ED visits at [facility] s/p accidental OD on intranasal heroin (03/26/15) and after ingesting an electric duster to get high (12/25/15). History of Suicide Attempts or Gestures Denied. However, per Dr. Liriano's ED consult, patient had reported prior suicide attempt by overdosing on Xanax and sleeping pills approx. 2-3 years ago. Substance Abuse History: Admitted to rx opiate and IV/intranasal heroin use x 3 years. Utox (+) opiates, methadone, BZD. Denied alcohol use or use of other illicits; however, admitted to using methadone approx. [address] to detox from heroin. Prescribed Xanax by outpatient RECEIVING OPERATOR; denies misuse. Admits to smoking 1.5ppd of cigarettes. 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 Social History Living Situation: Live with mother in [place]. Significant Relationships (family/friends): Mother, sister, friends. Education: Associate's degree in general studies. 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 Legal: Court date: 11/30/16 (d/t possession of drugs). Per [place] judicial site, no charges on file. Healthly Behaviors Screening Tobacco Screening Tobacco Use from ED Docu: Current Daily Use Daily Tobacco Use Amount/Type: => 5 Cigarettes daily - If tobacco counseling indicated - the following topics are required. - #1 Recognizing dangerous situations. - #2 Coping Skills. - #3 Basic information about quitting. Status of Tobacco Cessation Counseling: #1, #2 AND #3 Completed Cessation Med Status: Nicotine Gum Ordered Alcohol Screening - ETOH screen POS if BAL >=80 or Audit-C>= M4/F3 Audit-C Score from Diag Assess: 0 Blood Alcohol Level: Laboratory Tests 11/25 0403 Toxicology Serum Alcohol (<10 MG/DL) < 10.0 Alcohol Use Screening Results: Neg per Audit C &/or BAL - If ETOH counseling indicated - the following topics are required. - #1 Express concern about the patient's - drinking at unhealthy levels, include informing - of national norms for moderate drinking: - men <= 14 drinks/week, max 4 drinks/occasion - women <= 7 drinks/week, max 3 drinks/occasion - #2 Providing feedback, including linking alcohol to - negative physical effects (liver injury, hypertension) - negative emotional effects (relationship problems and - depression) - negative occupational consequences (reduced work - performance) - #3 Advising the patient to abstain from alcohol or - to drink below national norms for moderate drinking - (as listed above). Status of ETOH Use Counseling: N/A B/C NO ETOH Use Metabolic Screening - Screen if on a Neuroleptic Medication - Metabolic screening should include: - Blood Pressure, BMI, Glucose or Hgb A1c, & a - Lipid profile from within the past 365 days. Metabolic Screening ([X]) Not Applicable, patient not on a neuroleptic. OR () Patient on a neuroleptic(s) . Enter below results for Glucose or Hemoglobin A1C, and lipid panel if obtained during the last 365 days. BMI: 23.500 Blood Pressure: 118/61 Laboratory Results (If applicable): n/a Exam and Plan Mental Status Examination Ambulation Status: Steady and independent Appearance: 26 y/o CM who appeared stated age. Thin, tall. Fairly groomed. Dressed casually in own clothes. Attitude towards examiner: Disinterested, cooperative. Psychomotor activity: + agitation likely secondary to opiate withdrawal Behavior: within fair behavioral control Quality of speech: average in rate, tone and volume Affect: constricted Mood: anxious Suicidal Ideation: denied Homicidal Ideation: denied Hallucinations: denied avh Paranoid/Delusional Material: none evident Difficulties with thought organization: none evident Insight: limited Judgment: limited Orientation: x 3 Cognition: grossly intact Memory Function: grossly intact Estimate of intellectual functioning: average Assets/Strengths Patient Identified Assets/Strengths: supportive family, stable home, has outpatient providers, employed. Impression/Plan Impression and Plan: Patient is a 26-year old male with a history of bipolar 2 disorder and opiate use disorder; 1 prior inpatient psychiatric hospitalization for suicide attempt by overdose; prescribed Lamictal and Xanax by outpatient RECEIVING OPERATOR. He presented to ED on a PEER after expressing SI via an email to his ex-girlfriend due to being agry at her. He described behavior as a misunderstanding; stated that his email meant to convey that he would never speak to her again. Denied this was a suicidal threat. He denied present SI, HI, AVH. There was no evidence of paranoia, delusions, or manic/hypomanic symptoms. Presently detoxing from heroin , reported muscle aches, anxiety, chills, and VALLE. HR tachy, vital signs otherwise stable. Patient not agreeable to making medication changes at present. Denied acute symptoms of depression. Denied suicidal ideation. Chief complaint at present remains opiate withdrawal. Will start on brief methadone taper for opiate detox. - Include all active medical diagnosis that require tx DSM 5 Diagnosis(es): Bipolar disorder, MRE depressed Opioid use disorder - Initial Tx Plan for Active Psych & Medical Conditions Treatment Plan: 1. Monitor for safety, mood, suicidal ideation, and opiate withdrawal. 2. Start methadone taper as ordered. 3. Change Gabapentin 600mg TID prn to scheduled TID for anxiety. 4. Continue Lamictal 200mg daily. 5. Decrease Xanax from 1mg QHS to 0.5mg QHS. 6. Obtain collateral from family. 7. Once symptoms are clinically stable, refer to Dual Dx IOP level of care post- discharge. 8. Continue Bactrim and Keflex as ordered for cellulitis. - Factors that would help patient function - in a less restrictive setting. Factors: Opiate detox Sobriety Tx adherence
--- NOTE | 2016-11-26 13:10 | ULTRASOUND REPORT ---
EXAMINATION: US SUPERFICIAL IMAGING, EXTREMITY CLINICAL INFORMATION: Left upper extremity swelling, cellulitis. COMPARISON: None. TECHNIQUE: Targeted ultrasound of the left antecubital fossa. FINDINGS: Localized altered echotexture is noted at the site of the left antecubital fossa swelling with evidence of 3.4 x 1.0 x 2.3 cm relatively well-circumscribed ellipsoidal hypoechogenicity without any increased vascularity. The appearance is nonspecific, may represent changes secondary to cellulitis, phlegmon, hematoma or less likely necrotic neoplasm etc. No definite discrete fluid collection suggestive of mature abscess formation is noted. IMPRESSION: Nonspecific focal hypoechogenicity is noted within the left antecubital fossa corresponding to the swelling, cellulitis, may represent changes secondary to cellulitis, phlegmon, hematoma or less likely to be necrotic neoplasm.No definite discrete fluid collection suggestive of mature abscess formation is noted.
[2016-11-26 15:52] VITALS: BP 115/62
--- NOTE | 2016-11-26 18:14 | SOCIAL WORKER PROG NOTE PSYCH ---
Social Work Progress Note Progress Note Lamin has been in bed most of the day. He reported that he was withdrawaling a bit from heroin and now he was given a methadone taper and he is feeling a bit better. He reported some body aches. He reports no suicidality at this time and reports that the email he sent the ex-girlfriend about the next time she would hear from him was the day he , was taken different then what he meant. He stated that what he meant was that she would never hear from him again the rest of his life. He was trying to get some boots and things back from her that she had and he reported that she was giving him a hard time and described her as being somewhat difficult towards him. He has been using about 5 bags of heroin a week and just left rehab in [facility] at the end of October. He works full-time at a [employer] for [employer]. He has been working there for about 21/2 years. 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 He is open to going to [facility] for substance/ mental health tx. I told him that he cannot be on Xanax in the dual track at our program. He was open to going off the Xanax and trying something else. He has been taking the Xanax for insomnia apparently. He suggested he go back on Seroquel. 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 He lives at home with his Mom and states they have a good relationship. He is open to having her in for a family meeting on Tuesday. He reports having a goal of returning to college for his bachelor's degree and would like to get a degree in history. He reports that he is fascinated by history and considers himself a history buff. I called his Mom to invite her in for a family meeting. Mom stated she couldn't take off of work, but that she would try to make a phone conference. We are to call Tuesday at 11am. [phone].
[2016-11-26 19:59] VITALS: BP 106/60
--- NOTE | 2016-11-26 20:57 | NUR ---
PT IS CALM, COOPERATIVE WITH STAFF AND PEERS, AND COMPLIANT WITH UNIT RULES. PT IS OFTEN IN [place]IE[place], INTERACTING WELL WITH OTHERS. AT TIMES THOUGH PT WILL ISOLATE IN PT ROOM, SPENDING PERIODS BY SELF. MOOD IS STABLE, AFFECT APPEARS EUTHYMIC TO FULL RANGE. COMMUNICATION IS ORGANIZED AND APPEARS NORMAL IN ALL RESPECTS, AND APPETITE IS NORMAL. PT DENIES SI AT THIS TIME.
[2016-11-27 08:25] VITALS: BP 100/54
[2016-11-27 12:11] VITALS: BP 108/53
--- NOTE | 2016-11-27 14:10 | NUR ---
PT IS COOPERATIVE AND COMPLIANT WITH UNIT RULES. PT IS OUT IN THE COMMUNITY ITNERACTING WELL WITH STAFF AND PEERS. PT MOOD IS STABLE WITH A FULL RANGE AFFECT. PT IS ATTENDING SOME GROUPS. PT DENIES SI THOUGHTS AT THIS TIME.
[2016-11-27 16:06] VITALS: BP 128/81
--- NOTE | 2016-11-27 16:25 | CP SOUTH PROGRESS NOTE PSYCH ---
Psych (Inpt) Progress Note Progress Note Include the following elements, when applicable: Involvement in the active treatment of the patient with behavioral observations of the patient and the patient's response to the treatment. Review of the ongoing treatment process in the context of the treatment plan. Indication of how multi-disciplinary staff members are carrying out the treatment plan. Plans for future interventions and recommendations for revision of the treatment plan. Liaison with other physicians/providers. Progress Note: The patient was seen for follow-up for bipolar disorder, most recent episode mixed, severe. He was discussed with the nursing staff and interviewed individually. As per the nursing staff he has been appropriate in his interactions with peers and them, compliant with medication and active on the unit. He eats and sleeps well. He is a medium-high, lender male, looking younger than stated age, wearing glasses and very cheerful outfit. 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 The patient's thought processes linear. There is no abnormal thinking, no delusions, denies depression. The patient denies suicidal/homicidal ideation, auditory/visual hallucinations, side effects from the medications. He has good insight and judgment and is motivated for treatment. The patient does not have any physical complaints, vital signs are within normal limits, is actively involved in his discharge planning he wants to pursue an intensive outpatient program. We will continue observation, symptoms monitoring, medication management, daily assessment. The patient will continue taking the medication as prescribed.
[2016-11-27 20:09] VITALS: BP 129/82
--- NOTE | 2016-11-27 21:14 | NUR ---
PT IS VISIBLE ON UNIT, VERY SOCIAL WITH PEERS. COOPERATIVE AND COMPLIANT WITH STAFF. NO COMPLAINTS OR SI REPORTED. PT HAS A STABLE MOOD AND BRIGHT AFFECT.
[2016-11-28 08:18] VITALS: BP 92/65
[2016-11-28 12:14] VITALS: BP 135/73
--- NOTE | 2016-11-28 13:10 | NUR ---
PT IS OUT IN THE COMMUNITY INTERACTING WELL WITH STAFF AND PEERS. PT IS COMPLIANT AND COOPERATIVE WITH UNIT RULES. PT IS ACTIVE IN GROUPS. PT MOOD IS STABLE WITH A FULL RANGE AFFECT. PT DENIES SI SOHAOGISABEL.
--- NOTE | 2016-11-28 15:24 | CP SOUTH PROGRESS NOTE PSYCH ---
Psych (Inpt) Progress Note Progress Note Include the following elements, when applicable: Involvement in the active treatment of the patient with behavioral observations of the patient and the patient's response to the treatment. Review of the ongoing treatment process in the context of the treatment plan. Indication of how multi-disciplinary staff members are carrying out the treatment plan. Plans for future interventions and recommendations for revision of the treatment plan. Liaison with other physicians/providers. Progress Note: The patient was seen for follow-up during continuum of care. He continues to be pleasant, cooperative, with appropriate interactions with peers and staff members. He had an old friend visiting, and enjoyed a pleasant visit. We discussed the patient with the nursing staff and interviewed him individually. According to the nursing staff he has been up and about on the unit, very actively involved in activities, appropriate with peers and staff members. During the individual interview he appears less exuberant than previously. He continues to be well groomed, pleasant and cooperative. He denies depression, there is no delusional ideation present, there is no ronny or hypomania. Patient denies suicidal/homicidal ideation, auditory/visual hallucinations, or side effects from the medications. The patient is tolerating well the taper off methadone and is looking forward to attending a dual diagnosis IOP, he hopes at [facility]. He is determined to maintain clean and sober, having plans for the future and wanting "to make something from myself". We will continue present management and the patient will be followed up in the outpatient program upon discharge.
[2016-11-28 16:04] VITALS: BP 104/59
[2016-11-28 20:27] VITALS: BP 112/67
--- NOTE | 2016-11-28 23:01 | NUR ---
PATIENT ALERT AND ORIENTED X3, PLEASANT AND COOPERATIVE, SLIGHTLY SUPERFICIAL IN DEMEANOR, NOT MATCHING LIFE CIRCUMSTANCES; PATIENT DENIES S/I AT THIS TIME; PATIENT ATTENDING GROUPS AND IS INTERACTING WELL WITH PEERS AND STAFF; REDDEND AREA IN LEFT ANTECUBITAL AREA BEING MONITORED; PATIENT STILL UNABLE TO FULLY EXTEND HIS LEFT ARM, AND HAD A 100.4 TEMPERATURE; DR. CRAWFORD NOTIFIED AND SHE CAME TO [facility] TO EXAMINE ANTONIO; SHE WILL ORDER AN XRAY OF HIS LEFT ARM FOR 11/29/16, AND WILL STAFF WILL FOLLOW UP WITH HOSPITALIST ON 11/29/16.
--- NOTE | 2016-11-28 23:23 | Event Note ---
Event Note Event Note: I was called to see Mr. Mast, as he is not able to move his left elbow to the full range. According to patient, pain and swelling at left elbow is getting much better. But he could not extend his elbow completely. The pain does not restrict the pain, he is unable to move beyond certain point. The whole day, it is in flexed or semiflexed position. No other complains. Not documented but Max temp today was 100.4. Local exam: lateral aspect of left elbow has approximately 4 cm area of induration, redness and warmth, no fluctuation. Underlying muscle/tendon felt indurated. so e/o effusion on left elbow. with Maximum extension effort, elbow is in 15 to 20 degree flexion. I will get Xray tomorrow morning. Suggested him to keep the arm moving. Cold compresses. increased duration of ABx to 7 days
--- NOTE | 2016-11-29 06:21 | NUR ---
PATIENT SLEPT ALL NIGHT.
[2016-11-29 08:08] VITALS: BP 101/52
--- NOTE | 2016-11-29 11:04 | CP SOUTH PROGRESS NOTE PSYCH ---
Psych (Inpt) Progress Note Progress Note Include the following elements, when applicable: Involvement in the active treatment of the patient with behavioral observations of the patient and the patient's response to the treatment. Review of the ongoing treatment process in the context of the treatment plan. Indication of how multi-disciplinary staff members are carrying out the treatment plan. Plans for future interventions and recommendations for revision of the treatment plan. Liaison with other physicians/providers. Progress Note: I discussed this patient's progress to date, current mental status, treatment process in the context of the treatment plan, and discharge planning with staff/ team in the daily morning inpatient team meeting. I also met with the patient myself in individual session. Current Medications Sig/Richard Start time Last Medication Dose Route Stop Time Status Admin Acetaminophen 650 MG .STK-MED ONE 11/288 DC PO 11/28 221 Acetaminophen 650 MG Q6P PRN 11/25 1400 AC 11/28 PO 2224 Al Hydroxide/Mg 30 ML Q4-6 PRN PRN 11/25 1400 AC Hydroxide PO Alprazolam 0.25 MG AT BEDTIME 11/29 2200 AC PO 12/02 2159 Alprazolam 0.5 MG AT BEDTIME 11/25 2200 DC 11/28 PO 12/02 2159 2143 Baclofen 10 MG Q6P PRN 11/25 1415 AC 11/28 PO 2142 Cephalexin 500 MG Q6 11/25 2359 AC 11/29 PO 12/02 1200 0955 Clonidine 0.1 MG 1000,0 11/29 1000 DC 11/29 PO 0955 Clonidine 0.1 MG TID 11/25 1600 DC 11/28 PO 2143 Clonidine 0.1 MG Q6P PRN 11/25 1415 AC PO Dicyclomine HCl 20 MG Q6P PRN 11/25 1415 AC PO Gabapentin 600 MG 0800,1400,2200 11/26 2200 AC 11/29 PO 0955 Lamotrigine 200 MG DAILY 11/25 1403 AC 11/29 PO 0954 Magnesium Hydroxide 30 ML AT BEDTIME PRN 11/25 1400 AC PO Methadone HCl 10 MG 1000 11/29 1000 DC 11/29 PO 11/29 1001 0956 Multivitamins 1 TAB DAILY 11/25 1402 AC 11/29 PO 0955 Nicotine 14 MG DAILY 11/26 1000 AC 11/29 TOP 0954 Patient Medication 1 UNIT 11/29 Teaching ED 11/29 2200 Trazodone HCl 50 MG AT BEDTIME NEED.. 11/25 1400 AC 11/27 PO 2301 Trimethoprim/ 1 TAB BID 11/25 2359 AC 11/29 Sulfamethoxazole PO 12/02 1200 0958 Vital Signs Date Time Temp Pulse Resp B/P B/P Pulse O2 O2 Flow FiO2 Mean Ox Delivery Rate 11/29 0955 97.7 77 16 101/52 11/29 0855 Room Air 11/29 0808 97.7 77 101/52 11/28 2341 97.7 11/28 2143 86 112/67 11/28 2027 98.9 86 11211/28 1626 92 104/59 11/28 1604 92 10459 11/28 1214 90 135/73 11/29/16 RAD - XRY-ELBOW AP & LATERAL, LEFT: IMPRESSION: Soft tissue swelling in the lateral antecubital fossa corresponds to the area of soft tissue abscess observed on ultrasound from 11/26/2016. No evidence of elbow joint effusion or osteomyelitis. ASSESSMENT: Chart, progress notes, labs, VS and medication list reviewed. Vital signs within normal limits. No new lab results today. Tolerating methadone taper well. Material Man Dr. Bhakta consulted patient yesterday, d/t increased pain and swelling to left elbow. He had limited range of motion, and could not extend elbow completely. Xray ordered for today, must be completed inpatient per Dr. Master Soares prior to discharge. Met with patient today on the date of discharge. Informed patient of the above information, he was agreeable to remaining on unit for inpatient Xray/and f/u tx as recommended. He presented alert and oriented to person, place, time and situation. He expressed no acute concerns from over the weekend, nor did he have any significant events from this weekend. He decribed his mood as "good." Affect was full-range, non-labile. He was noted joking approppriately during encounter. Speech was average in rate, tone and volume. Eye contact was appropriate. He rated anxiety 2/10 (10 being the worst) and depression 0/10 (10 being the worst) . He denied passive and active suicidal ideation, plans and intent. He stated and also believed he will not harm himself or others. He identified the following protective factors: "my mom," "my aunt" and "my cousin." He denied homicidal ideation, auditory and visual hallucinations. There was no evidence of paranoia or yaya delusions. He denied urges and cravings to use substances. He reported his sleep and appetite were good. There were no overt signs of psychosis or ronny/hypomania. Patient reported tolerating medications well and denied untoward effects. He reported feeling safe and ready for discharge and was agreeable to following up with Dual IOP for continued management of psychiatric symptoms and sobriety. I&D completed to left AC by Dr. Kan today. Patient was instructed to f/u with Dr. Kan's office in 3 days (12/02/16) regarding culture results. All instructions printed on discharge W-10. Patient verbalized understanding of all discharge instructions. PLAN: 1. Discharge to home today into the care of mother. 2. F/u with IOP intake on 11/30/16 at 10AM. 3. F/u with [facility] Urmila [facility], on 12/08/16 at 10AM regarding cellulitis. 4. F/u with Smoking Cessation Program on 12/01/16 at 4PM. 5. Abstain from all substances. Patient was strongly advised to attend NA/AA meetings and obtain a sponsor for support in sobriety. 6. In the event of an emergency, call 911/go to nearest emergency department. Patient verbalized understanding of instruction. 7. All discharge prescriptions were printed, reviewed with patient and provided to patient on discharge per his request. 8. Patient was informed to contact Dr. Kan's office on 12/02/16 regarding body fluid culture results that were obtained today. All instructions printed on discharge W-10. Patient verbalized understanding.
[2016-11-29] MEDS ORDERED: XANAX0.25 M1 PO (11:43)
[2016-11-29] MEDS ORDERED: SULFAMETHOXAZO1 EAC1 PO (11:43)
[2016-11-29] MEDS ORDERED: CEPHALEXIN500 M3 PO (11:43)
[2016-11-29] MEDS ORDERED: GABAPENTIN600 M1 PO (11:43)
[2016-11-29] MEDS ORDERED: LAMICTAL200 M1 PO (11:43)
[2016-11-29] MEDS ORDERED: ONE DAILY MULT1 EAC2 PO (11:43)
--- NOTE | 2016-11-29 11:51 | NUR ---
PT IS TENTATIVELY SCHEDULED FOR D/C TO [facility] [place] TODAY. HE REPORTS AND DEMONSTRASTES IMPROVEMENT IN HIS MOOD AND ABILITY TO FUNCTION. PT DENIES ANY THOUGHTS OF SUICIDE OR SELF HARM.PT IS COMPLIANT WITH HIS MED REGIME AND AGREES TO FOLLOW UP WITH IOP. PT REPORTS NO S/S WITHDRAWAL. PT WILL HAVE REPEAT XRAY L ARM PRIOR TO LEAVING. PT IS GIVEN EDUCATION R/T MANAGING HIS BIPLOAL D/O AND ON SUICIDE PREVENTION
--- NOTE | 2016-11-29 12:13 | SOCIAL WORKER PROG NOTE PSYCH ---
Social Work Progress Note Progress Note Lamin shared that he invited his Aunt in for the family meeting today at 11am. Aunt and cousin Rajeev came in for the meeting. Amparo Issa APRN was also present for this meeting. Lamin's Mom was phone conferenced in. Family didn't share any concerns about Lamin and him being discharged today. Family feels Lamin looks and sounds good. Talked about aftercare in [facility]. [facility] will finish the Xanax taper the last few days. I told him I would try to get an intake for today or tomorrow the latest. Lamin seems to be doing well mentally. Stated he was able to get sleep and he is not experiencing much anxiety at this time. He has no plans to contact the ex-girlfriend again. Seems ready to move on. Talked about the importance of becoming involved with AA or NA. Doesn't care for the mormonism aspect, but able to look at "higer power" as something else other than yazdanism. He will need to have an appt. with his physician at [facility] when he leaves as follow up to his elbow, which appears infected at this time. No issues with proceeding with discharge today. Told him we will set up follow up appts. Called [facility] and they could see him tomorrow at 10am for intake. Appt. was scheduled with Urmila Ferguson at [facility] on [facility] in [place] for 12/08 at 10am. Lamin will have an xray of his arm today while in the hospital.
[2016-11-29 12:20] VITALS: BP 130/70
--- NOTE | 2016-11-29 12:53 | DISCHARGE SUMMARY REPORT-PSYCH ---
Visit Information Visit Dates/Diagnosis' Admission Date: 11/25/16 Discharge Date: 11/29/16 Reason for Admission: Suicidal ideation without plan or intent. Psy Discharge Primary Diag: Bipolar 2 disorder, MRE depressed Psy Discharge Secondary Diag: Opioid use disorder; Cellulitis to lateral aspect of left elbow. Hospital Course Significant Lab Findings: Lab Albumin 3.4 g/dL L 11/25/16 0403 BUN 6 mg/dL L 11/26/16 0659 Creatinine 0.6 mg/dL L 11/26/16 0659 Total Protein 6.0 g/dL L 11/25/16 0403 Absolute Granulocytes 9.9 /CUMM H 11/25/16 0403 Hct 37.8 % L 11/25/16 0403 Hgb 13.0 G/DL L 11/25/16 0403 MPV 7.1 FL L 11/25/16 0403 Plt Count 411 /CUMM H 11/25/16 0403 RBC 4.35 /CUMM L 11/25/16 0403 WBC 15.4 /CUMM H 11/25/16 0403 Methadone Screen > 735 NG/ML H 11/25/16 0355 U Benzodiazepines Scrn > 800 NG/ML H 11/25/16 0355 Urine Opiates Screen > 4000.00 NG/ML H 11/25/16 0355 Micro BLOOD CULTURE REPORT Normal RES 11/26/16 0045 BLOOD CULTURE REPORT Normal RES 11/26/16 0124 GRAM STAIN Normal RECD 11/29/16 1813 EXTREMITIES CULTURE Normal RECD 11/29/16 1813 11/26/16 US - US-SUPERFICIAL IMAGING EXTREMI: IMPRESSION: Nonspecific focal hypoechogenicity is noted within the left antecubital fossa corresponding to the swelling, cellulitis, may represent changes secondary to cellulitis, phlegmon, hematoma or less likely to be necrotic neoplasm.No definite discrete fluid collection suggestive of mature abscess formation is noted. 11/29/16 RAD - XRY-ELBOW AP & LATERAL, LEFT: IMPRESSION: Soft tissue swelling in the lateral antecubital fossa corresponds to the area of soft tissue abscess observed on ultrasound from 11/26/2016. No evidence of elbow joint effusion or osteomyelitis. Course Complications: None. Consultations: The patient was seen for admission history and physical by director of trauma Dr. Medhat Gan. During exam, patient complained of left forearm swelling for 2 days around IVDU injection site. Blood cultures and ultrasound were ordered to r /o abcess. Po Keflex and Bactrim were additionally ordered. Please see MD note for additional information. Patient was reconsulted by director of trauma Dr. Dirk Bhakta for continued swelling, pain and limited ROM to left elbow. Patient also had a maximum tempature of 100.4. Lateral aspect of left elbow showed approximately 4 cm area of induration, redness, warmth, with no fluctuation on exam. Underlying muscle/tendon felt indurated. Maximum extension effort, elbow was in 15 to 20 degree flexion. Courses of po Keflex and Bactrim were extended to 7 days. XR ordered. Please see MD note for additional information. Patient was consulted by Dr. Arevalo and MARLIN Diaz of surgery. I&D was performed to lateral aspect of left elbow. Culture was sent of purulent drainage. Patient was instructed by MARLIN Diaz regarding dressing instructions. He was additionally instructed to follow up with Dr. Arevalo in 3-5 days, and was provided with his office contact information. Please see PA note for additional information. Allergies: Coded Allergies: NO KNOWN ALLERGIES (03/26/15) Hospital Course/TX Response: The patient was monitored on the unit for safety, mood, suicidal ideation, and opiate withdrawal. He was started on a brief methadone taper for opiate withdrawal. He tolerated methadone taper well without untoward effects. Lamictal 200mg po QAM was continued for mood stabilization. Gabapentin 600mg po TID was started for anxiety. Xanax 1mg po QHS was tapered down to 0.25mg QHS. Keflex 500mg po Q6H x 7 days and Bactrim DS 1 tab BID x 7 days were started for cellulitis to lateral aspect of left elbow. Patient tolerated all medications well and denied untoward medication effects. During the hospital course, the patient's mood and affect improved. He consistently denied active and passive suicidal ideation, plans and intent. A family meeting was held with his aunt and cousin on the unit, and the patient's mother phone conferenced in. The patient's mother, aunt and cousin did not express any acute concerns over the patient's safety or discharge. His family was in favor of discharge plan for patient to abstain from all substances and follow up at [facility]. On the date of discharge, 11/29/16, the patient presented alert and oriented to person, place, time and situation. He expressed no acute concerns from over the weekend, nor did he have any significant events from this weekend. He decribed his mood as "good." Affect was full-range, non-labile. He was noted joking approppriately during encounter. Speech was average in rate, tone and volume. Eye contact was appropriate. He rated anxiety a 2/10 (10 being the worst) and depression a 0/10 (10 being the worst). He denied passive and active suicidal ideation, plans and intent. He stated and also believed he will not harm himself or others. He identified the following protective factors: "my mom," "my aunt" and "my cousin." He was future oriented to resume work. He denied homicidal ideation, auditory and visual hallucinations. There was no evidence of paranoia or yaya delusions. He denied urges and cravings to use substances. He reported his sleep, appetite, and energy level were good. There were no overt signs of psychosis or ronny/hypomania. Patient reported tolerating medications well and denied untoward effects. He reported feeling safe and ready for discharge and was agreeable to follow up with [facility] for continued management of psychiatric symptoms and sobriety. Discharge HBIPS - Tobacco Use Treatment Offered Post DC Medications Offered: Script Given-See Med List Post DC Tobacco Treatment Plan: Nam Tobacco Tx Pgm Program Appt Date: 12/01/16 Program Appt Time: 1600 - EtOH/Drug Use D/O Treatment Offered Post DC Medications Offered: Ref Med EtOH/Drug Use D/O Post DC EtOH/SubAbuse TX Plan: Nam SubAbuse/[facility] Program Appt Date: 11/30/16 Program Appt Time: 1000 Metabolic Screening - Screen if on a Neuroleptic Medication - Metabolic screening should include: - Blood Pressure, BMI, Glucose or Hgb A1c, & a - Lipid profile from within the past 365 days. Metabolic Screening ([X]) Not Applicable, patient not on a neuroleptic. OR () Patient on a neuroleptic(s) . Enter below results for Glucose or Hemoglobin A1C, and lipid panel if obtained during the last 365 days. BMI: 23.500 Blood Pressure: 128/72 Laboratory Results (If applicable): n/a Discharge Instructions General Discharge Information Discharge Medications: Discharge Medications- (Dose, route, freq, indication): START taking these NEW Home Medications: Cephalexin Dose: ORAL, EVERY SIX HOURS Qty: 13 Printed (Cephalexin) 500 MG 500 Milligram for cellulitis Refills: 0 CAPSULE Take 1 cap by mouth every 6 hours. Stop: 12/02/16, after course is completed. . Last Taken:11/29/16 Time:1000 Sulfamethoxazole/ Dose: ORAL, TWICE DAILY for Qty: 7 Printed Trimethoprim 1 Tablet cellulitis Refills: 0 (Sulfamethoxazole- Take 1 tab by mouth QAM Tmp Ds Tablet) 800 and QPM. Stop: 12/02/16, MG-160 MG TABLET after course is completed. Last Taken:11/29/16 Time:1000 Gabapentin Dose: ORAL, THREE TIMES DAILY Qty: 42 Printed (Gabapentin) 600 MG 1 Tablet for anxiety Refills: 0 TABLET Take 1 tab by mouth three times daily. Last Taken:11/29/16 Time:1000 Lamotrigine Dose: ORAL, Every Morning for Qty: 14 Printed (Lamictal) 200 MG 1 Tablet mood stabilization Refills: 0 TABLET Take 1 tab by mouth QAM. Last Taken:11/29/16 Time:1000 Alprazolam (Xanax) Dose: ORAL, AT BEDTIME for Qty: 4 Printed 0.25 MG TABLET 0.25 anxiety Refills: 0 Milligram Take 1 tab by mouth at bedtime. Last Taken:TO START TONIGHT 11/29/16 Time: Multivitamin (One Dose: ORAL, DAILY for vitamin Qty: 14 Printed Daily Multivitamin) 1 Tablet support Refills: 0 1 EACH TABLET Take 1 tab by mouth daily. Last Taken:11/29/16 Time:1000 Nicotine (Nicotine Dose: On the skin, DAILY for Qty: 14 Printed Patch) 14 MG/24 HOUR 14 Milligram smoking cessation Refills: 0 PATCH.TD24 Apply 1 patch topically QAM and remove before HS. STOP taking these DISCONTINUED Home Medications: Alprazolam (Xanax) 2 MG TABLET Dose: ORAL, AT BEDTIME for SLEEP HELP 1 Tablet Reason Stopped: Per Doctor Decision Multiple Neuroleptics: ([X]) Not Applicable OR Document below three failed attempts at monotherapy, or a plan to taper to monotherapy, or augmentation of Clozapine. () Patient's Diet: Regular. Patient's Activity: No restrictions. DC Disposition: Patient to return to home and mother. Recommendations: Patient was advised to please take his medications as prescribed. He was advised to abstain from all substances, to attend AA/NA meetings and obtain a sponsor for support in sobriety. He was advised to follow up with scheduled appointments (see in referral section below). He was advised to follow-up with Dr. Arevalo for culture results in 3 days. He was advised that he would continue Xanax taper post-discharge and that Xanax would be decreased tonight from 0.5mg QHS to 0.25mg QHS x 4 days, then Xanax would stop. He was advised to complete full courses of antibiotics as prescribed for cellulitis. He was advised that in the event of an emergency, to call 911/go to nearest emergency department. Patient verbalized understanding of all instructions. Referred To: Post Discharge Referrals Intensive Outpt Psychiatry Service Date: 11/30/[address] [place] [address] Notes: [facility] Intake [address] [place], [place] [phone] 11/30/[address] [place] [address] Practice [address] [place], [place] (t)[phone] Appt. with Urmila Granados 12/08/[address] [place] [address] Smoking Cessation Program [address] [place], [place] )[phone] Appt. on 12/01/16 at 4PM. Please bring appointment card. Dr. Tani Arevalo [address] (t)[phone] Arevalo on 12/02/16 to obtain culture results. Copies To: URMILA CAGLE; [facility]; Smoking Cessation Program; TANI AREVALO MD
--- NOTE | 2016-11-29 16:20 | RADIOLOGY REPORT ---
EXAMINATION: XR ELBOW, LEFT CLINICAL INFORMATION: Cellulitis around elbow. Restricted motion. COMPARISON: Ultrasound of soft tissues from 11/26/2016 TECHNIQUE: AP and lateral views of the left elbow were obtained. FINDINGS: Soft tissue swelling in the lateral antecubital fossa corresponds to the region of the apparent abscess observed on the ultrasound of 11/26/2016. There is no radiopaque foreign body or soft tissue emphysema. The elbow joint spaces are normal and there is no joint effusion. No osseous erosion or periostitis. IMPRESSION: Soft tissue swelling in the lateral antecubital fossa corresponds to the area of soft tissue abscess observed on ultrasound from 11/26/2016. No evidence of elbow joint effusion or osteomyelitis.
[2016-11-29 16:31] VITALS: BP 128/72
--- NOTE | 2016-11-29 16:46 | Event Note ---
Event Note Event Note: I was following up on xray ordered by donor services coordinator to f/u on ?elbow jt effusion, given left antecubital fossa swelling and restriction of ability to extend the jt. Pt seen and examined. He feels well. He feels like his swelling has decreased considerably since he started the antibiotic but he does admit to the fact that it still painful and red. He can't extend his forearm completely because of pain. On review he is afebrile on by mouth Keflex and Bactrim, he does have a discrete area of erythema and swelling in the left lateral antecubital fossa. The x-ray is negative for any joint effusion or osteomyelitis but does show this questionable collection versus abscess. I'm worried that the patient needs an I&D of this discrete collection. I called Dr. Kan and spoke to him and spoke to the surgical PA. They will follow up with Cassie guerrier inpt psychologist engineering for I&D. Patient already has prescriptions printed for Keflex and Bactrim with outpatient follow- up with Urmila Donald the nurse practitioner at Dr. Taylor's office.
[2016-11-29] MEDS ORDERED: NICOTINE PATCH1 EAC2 TOP (16:52)
--- NOTE | 2016-11-29 18:03 | Procedure ---
Minor Surgical Procedure Note Date of Procedure: 11/29/16 Procedure Note: Procedure: Incision & drainage abscess, left elbow The arm was prepped and draped in sterile fasion. 3 mls lidocaine 1% was used to anesthetize the skin and soft tissue. A 1 cm incision was made over the obvious area of induration and tenderness, with immediate return of purulent drainage, which was sent for culture. Approximately 50 mls of pus was expressed. small piece of plain guaze placed in the incised region with guaze and kerlex wrap. The patient will be discharged home with dressing instructions, to follow up with in 3-5 days.
--- NOTE | 2016-11-29 18:13 | NUR ---
MARLIN (Sofia) down on CPS to drain LAC abscess and procedure went and pt tolerated well, PA educated and instructed pt on how to care and manage wound and to follow-up with Dr. Kan's office in 3 days (number provided) re: culture results and pt verbalized understanding re: the above. No issues or complaints reported or observed, still scheduled for discharge after procedure. Body fluid samoke collected and in the process of being sent to lab.
--- NOTE | 2016-11-30 10:25 | IOP INCIDENTAL NOTE ---
IOP Incidental Note Details: Patient no call no show for intake appointment today at 10am. Placed outreach call to patient and left voicemail requesting call back.
== END 2016-11-29 18:10 | DRG 885 ==
LOC: ERH 03:41 → ERHI 13:28 → CP SOUTH 13:28 → ERH 14:25 → ERHI 14:25 → CP SOUTH 22:13
PROVIDERS: Pediatrics; ADMIT Psychiatry & Neurology Addiction Medicine
DX: F31.81 Bipolar II disorder (principal); L03.114 Cellulitis of left upper limb; F11.90 Opioid use, unspecified, uncomplicated
CPT/HCPCS: 87075; 87184; 36415; 73070-LT; 76881; 80307; 82436; 87040; 87070; 87147; 93005; 93010; G0463; G0480

== ENCOUNTER 2016-12-09 16:23 | Emergency (ER) | payer OTHER ==
[~2016-12-09] VITALS: Ht 177.8 cm; Wt 67.1 kg
[~2016-12-09 16:23] MED LIST changes: +CEPHALEXIN500 M3 PO; +GABAPENTIN600 M1 PO; +LAMICTAL200 M1 PO; +LAMOTRIGINE100 M2 PO; +NICOTINE PATCH1 EAC2 TOP; +ONE DAILY MULT1 EAC2 PO; +SULFAMETHOXAZO1 EAC1 PO; +XANAX0.25 M1 PO; +XANAX2 M1 PO
--- NOTE | 2016-12-09 17:43 | ED GENERAL ADULT ---
History of Present Illness General Chief Complaint: General Adult Stated Complaint: DIFFICULTY WALKING, POSS MED REACTION Source: patient, family Exam Limitations: no limitations Vital Signs & Intake/Output Vital Signs & Intake/Output Vital Signs Date Time Temp Pulse Resp B/P B/P Pulse O2 O2 Flow FiO2 Mean Ox Delivery Rate 12/10 1927 97.8 98 18 132/84 97 Room Air 12/09 1629 98.1 110 14 127/85 98 Room Air Allergies Coded Allergies: NO KNOWN ALLERGIES (03/26/15) Reconcile Medications Alprazolam (Xanax) 0.25 MG TABLET 0.25 MG PO AT BEDTIME anxiety Take 1 tab by mouth at bedtime. Gabapentin 600 MG TABLET 1 TAB PO TID anxiety Take 1 tab by mouth three times daily. Lamotrigine (Lamictal) 200 MG TABLET 1 TAB PO QAM mood stabilization Take 1 tab by mouth QAM. Triage Note: 26 Y/O MALE C/O NUMBNESS TO BILATERAL LEGS X 2 DAYS; STARTED NEURONTIN 1 WEEK AGO AND NOTICED SYMPTOMS A FEW DAYS LATER. CONCERNED HE IS HAVING A MED REACTION. STATES HE IS ON METHADONE AND READ THERE COULD BE AN INTERACTION BETWEEN OPIODS AND NEURONTIN. DENIES OTHER COMPLAINTS. Triage Nurses Notes Reviewed? yes HPI: Patient was recently started on Neurontin for anxiety. Per the past 4 days he has had difficulty walking because he cannot put his feet up off the ground. Patient states he is able to move his legs normally however his feet just flop. Patient has fallen multiple times because he has tripped. There is been no head injury. No loss of consciousness. Past History Travel History Traveled to [place] past 21 day No Medical History Any Pertinent Medical History? see below for history Neurological: DENIES EENT: DENIES Cardiovascular: DENIES Respiratory: DENIES Gastrointestinal: DENIES Hepatic: DENIES Renal: DENIES Musculoskeletal: DENIES Psychiatric: anxiety, bipolar disease, IV drug abuse, opioid dependence Endocrine: DENIES Blood Disorders: DENIES Cancer(s): DENIES [employer] [place]/Reproductive: NONE History of MRSA: No History of VRE: No History of CDIFF: No Surgical History Surgical History: non-contributory Psychosocial History Who do you live with Mother Services at Home None What is your primary language Yi Tobacco Use: Current Daily Use Daily Tobacco Use Amount/Type: => 5 Cigarettes daily ETOH Use: occasional use Illicit Drug Use: denies illicit drug use Family History Family History, If Any: Relation not specified for: *No pertinent family history Hx Contributory? No Review of Systems Review of Systems Constitutional: Reports: no symptoms. EENTM: Reports: no symptoms. Respiratory: Reports: no symptoms. Cardiovascular: Reports: no symptoms. GI: Reports: no symptoms. Genitourinary: Reports: no symptoms. Musculoskeletal: Reports: no symptoms. Skin: Reports: no symptoms. Neurological/Psychological: Reports: see HPI. Hematologic/Endocrine: Reports: no symptoms. Immunologic/Allergic: Reports: no symptoms. All Other Systems: Reviewed and Negative Physical Exam Physical Exam General Appearance: well developed/nourished, alert, awake Head: atraumatic, normal appearance Eyes: Bilateral: PERRL, EOMI. Ears, Nose, Throat: normal pharynx, normal ENT inspection, hearing grossly normal Neck: normal inspection, supple, full range of motion Respiratory: normal breath sounds, chest non-tender, no respiratory distress, lungs clear Cardiovascular: regular rate/rhythm, normal peripheral pulses Gastrointestinal: normal bowel sounds, soft, non-tender, no organomegaly Back: normal inspection, normal range of motion, no vertebral tenderness Extremities: ABRASIONS TO THE TOES ON BOTH FEET ON THE DORSAL SURFACE FROM WHERE HE HAS BEEN DRAGGING HIS TOES ON THE GROUND Neurologic/Psych: awake, alert, NORMAL SENSATION, REFLEXES 3+ B/L PETELLAR, 1+ B /L ANKLE. Skin: intact, normal color, warm/dry Core Measures ACS in differential dx? No CVA/TIA Diagnosis: No Severe Sepsis Present: No Septic Shock Present: No Progress Differential Diagnoses I considered the following diagnoses in my evaluation of the patient: [Bilateral foot drop] Plan of Care: Orders Procedure Date/time Status THYROID STIMULATING HORMONE 12/10 1819 Complete VITAMIN B12 12/09 182 Complete HIV (Reflex to HIVCQ) 12/09 1756 Complete LYME TITRE 12/09 175 Active COMPREHENSIVE METABOLIC PANEL 12/09 174 Complete CBC WITHOUT DIFFERENTIAL 12/09 1741 Complete Laboratory Tests 12/09/161819: Vitamin B12 Cancelled, Lyme Disease Antibody Pending 12/09/161819: Anion Gap 12, Estimated GFR > 60, BUN/Creatinine Ratio 10.0, Glucose 103 H, Calcium 9.7, Total Bilirubin 0.5, AST 21, ALT 49, Alkaline Phosphatase 77, Total Protein 7.3, Albumin 4.3, Globulin 3.0, Albumin/Globulin Ratio 1.4, Vitamin B12 494, TSH 1.510, CBC w Diff MAN DIFF ORDERED, RBC 4.89, MCV 86.8, MCH 29.1, RDW 14.4, MPV 7.2 L, Gran % 70.8, Lymphocytes % 21.0, Monocytes % 3.8, Eosinophils % 3.3, Basophils % 1.1, Absolute Granulocytes 11.9 H, Absolute Lymphocytes 3.5 H, Absolute Monocytes 0.6, Absolute Eosinophils 0.6, Absolute Basophils 0.2, Platelet Estimate ADEQUATE, Normocytic RBCs VERIFIED, Normochromic RBCs VERIFIED , PUBS MCHC 33.5, HIV 1&2 Ab Western Blot NONREACTIVE Diagnostic Imaging: Viewed by Me: CT Scan. Discussed w/RAD: CT Scan. Radiology Impression: PATIENT: ANTONIO ALDRICH PRESENT AGE: 26 PATIENT ACCOUNT NO: [id number] : 89 LOCATION: [facility] ORDERING PHYSICIAN: CYN MARLEY MD SERVICE DATE: 12/09/16 EXAM TYPE: CAT - CT LUMB SPINE WO IV CONTRAST EXAMINATION: CT LUMBAR SPINE WITHOUT CONTRAST CLINICAL INFORMATION: 26-year-old male with bilateral foot drop. Evaluate for spinal stenosis. COMPARISON: CT imaging of abdomen and pelvis from 09/12/2014. TECHNIQUE: Noncontrast multidetector CT imaging examination of the lumbar spine was performed using 0.625 mm collimation. Axial images are presented at 0.625 mm, 1.25 mm and 2.5 mm slice thickness. Coronal and sagittal reformatted images were generated and reviewed. DLP: 435 mGy-cm FINDINGS: The lumbar vertebra have normal density, height and alignment. No lytic or blastic osseous lesions. The anterior and posterior elements are intact. No evidence of spondylolysis, spinal listhesis or vertebral compression fracture. The conus medullaris appears to terminate at the L1 level. No evidence of an intradural or paraspinal soft tissue mass. The abdominal aorta is normal in size. No para- aortic lymphadenopathy or retroperitoneal tumor. SPINAL LEVELS: T12-L1: Normal. L1-L2: Normal. L2-L3: Normal. L3-L4: Normal. L4-L5: Minimal posterior disc bulge without significant narrowing of the central canal or neural foramina. L5-S1: Mild left posterolateral disc protrusion produces mild indentation upon the ventral surface of the thecal sac and is unchanged in appearance compared to . No significant narrowing of the central spinal canal or neural foramina. Sacrum and sacral iliac joints: Normal. IMPRESSION: No acute findings. No evidence of lumbar spinal stenosis, fracture or malalignment. A small left posterolateral disc protrusion remains similar in appearance compared to 2014. DICTATED BY: BERNARDO CABALLERO MD DATE/TIME DICTATED:12/09/161852 CLINICAL DIRECTOR:BHAVANA DATE/TIME TRANSCRIBED:12/09/161852 CONFIDENTIAL, DO NOT COPY WITHOUT APPROPRIATE AUTHORIZATION. <Electronically signed in Other Vendor System> SIGNED BY: BERNARDO CABALLERO MD 12/09/161902 Initial ED EKG: none Comments: Case was discussed with neurology. Blood work has been obtained, CAT scan has been reviewed, patient will follow-up with his primary care physician as well as neurology. Patient advised that he needs close follow-up to make sure that he is not having any ascending symptoms. Questions have been answered. Patient and his mother feel comfortable going home. Departure Departure Disposition: HOME OR SELF CARE Condition: Stable Clinical Impression Primary Impression: Foot drop, bilateral Referrals: MARY BURGOS,BERNARDO ISAAC,MABLE LANDEROS (PCP/Family) Additional Instructions: stop the neurontin follow up with your doctor and neurology Departure Forms: Customer Survey General Discharge Information Critical Care Note Critical Care Note Critical Care Time: mins: (45 MIN)
[2016-12-09 18:35] LABS: ABSOLUTE BASOPHIL COUNT 0.2 /CUMM (0.0-0.2); ABSOLUTE EOSINOPHIL COUNT 0.6 /CUMM (0.0-0.7); ABSOLUTE GRANULOCYTE CT 11.9 /CUMM (1.4-6.5); ABSOLUTE LYMPH COUNT 3.5 /CUMM (1.2-3.4); ABSOLUTE MONOCYTE COUNT 0.6 /CUMM (0.10-0.60); BASOPHIL % 1.1 % (0.0-2.0); EOSINOPHIL % 3.3 % (0-5); GRANULOCYTE % 70.8 % (42.2-75.2); HEMATOCRIT 42.4 % (42-52); MEAN CORPUSCULAR HGB 29.1 PG (27.0-31.0); MEAN CORPUSCULAR HGB CONC 33.5 G/DL (33.0-37.0); MEAN CORPUSCULAR VOLUME 86.8 FL (80.0-94.0); MEAN PLATELET VOLUME 7.2 FL (7.4-10.4); PLATELET COUNT 370 /CUMM (130-400); RBC DISTRIBUTION WIDTH 14.4 % (11.5-14.5); RED BLOOD CELL CT 4.89 /CUMM (4.70-6.10); WHITE BLOOD CELL COUNT 16.8 /CUMM (4.8-10.8)
--- NOTE | 2016-12-09 19:03 | CT SCAN REPORT ---
EXAMINATION: CT LUMBAR SPINE WITHOUT CONTRAST CLINICAL INFORMATION: 26-year-old male with bilateral foot drop. Evaluate for spinal stenosis. COMPARISON: CT imaging of abdomen and pelvis from 09/12/2014. TECHNIQUE: Noncontrast multidetector CT imaging examination of the lumbar spine was performed using 0.625 mm collimation. Axial images are presented at 0.625 mm, 1.25 mm and 2.5 mm slice thickness. Coronal and sagittal reformatted images were generated and reviewed. DLP: 435 mGy-cm FINDINGS: The lumbar vertebra have normal density, height and alignment. No lytic or blastic osseous lesions. The anterior and posterior elements are intact. No evidence of spondylolysis, spinal listhesis or vertebral compression fracture. The conus medullaris appears to terminate at the L1 level. No evidence of an intradural or paraspinal soft tissue mass. The abdominal aorta is normal in size. No para-aortic lymphadenopathy or retroperitoneal tumor. SPINAL LEVELS: T12-L1: Normal. L1-L2: Normal. L2-L3: Normal. L3-L4: Normal. L4-L5: Minimal posterior disc bulge without significant narrowing of the central canal or neural foramina. L5-S1: Mild left posterolateral disc protrusion produces mild indentation upon the ventral surface of the thecal sac and is unchanged in appearance compared to 09/12/2014. No significant narrowing of the central spinal canal or neural foramina. Sacrum and sacral iliac joints: Normal. IMPRESSION: No acute findings. No evidence of lumbar spinal stenosis, fracture or malalignment. A small left posterolateral disc protrusion remains similar in appearance compared to 09/12/2014.
[2016-12-09 19:28] VITALS: BP 132/84
== END 2016-12-09 19:30 ==
LOC: ERH 16:23
PROVIDERS: Emergency Medicine
DX: M21.371 Foot drop, right foot (principal); M21.372 Foot drop, left foot
CPT/HCPCS: 86618; 87389